=== PATIENT | female | born 1935 | race Caucasian/White ===

== ENCOUNTER 2021-08-25 21:52 | Emergency (ER) | payer MEDICARE, BC ==
[~2021-08-25] VITALS: Ht 149.9 cm; Wt 39.3 kg
[2021-08-26] MEDS ORDERED: CEPH-585 PO (00:43)
[2021-08-26] MEDS ORDERED: bacitracin 15gm ointment TP ONE (00:45)
[2021-08-26 01:14] VITALS: BP 112/97
== END 2021-08-26 01:17 | disposition home or self-care (01) ==
LOC: ER 21:53
DX: S41.112A Laceration without foreign body of left upper arm, initial encounter (principal); Z79.2 Long term (current) use of antibiotics; W18.40XA Slipping, tripping and stumbling without falling, unspecified, initial encounter; Y93.89 Activity, other specified; Y92.89 Other specified places as the place of occurrence of the external cause; Y99.8 Other external cause status
CPT/HCPCS: 12002; 99284

== ENCOUNTER 2021-09-03 16:34 | Emergency (ER) | payer MEDICARE, BC ==
[~2021-09-03] VITALS: Ht 147.3 cm; Wt 39.3 kg
[~2021-09-03 16:34] MED LIST: CEPH-585 PO
[2021-09-03 16:43] VITALS: BP 159/61
[2021-09-03] MEDS ORDERED: acetaminophen 325mg tablet PO ONE (18:05)
[2021-09-03] MEDS ORDERED: LIDOcaine 1% W/epiNEPHrine 1:200,000 10ml vial IJ ONE (18:05)
[2021-09-03] MEDS ORDERED: LIDOcaine 1% W/epiNEPHrine 1:100,000 20ml vial IJ ONE (18:45)
[2021-09-03] MEDS ORDERED: CLIN-97 PO (19:44)
[2021-09-03] MEDS ORDERED: bacitracin 15gm ointment TP ONE (19:45)
== END 2021-09-03 20:22 | disposition home or self-care (01) ==
LOC: ER 16:34
DX: S01.112A Laceration without foreign body of left eyelid and periocular area, initial encounter (principal); S09.90XA Unspecified injury of head, initial encounter; W19.XXXA Unspecified fall, initial encounter; Y93.89 Activity, other specified; Y92.89 Other specified places as the place of occurrence of the external cause; Y99.8 Other external cause status
CPT/HCPCS: 12002; 70450; 72125; 99285

== ENCOUNTER 2021-09-08 11:25 | Emergency (ER) | payer MEDICARE, BC ==
[~2021-09-08] VITALS: Ht 147.3 cm; Wt 43.0 kg
[~2021-09-08 11:25] MED LIST changes: +CLIN-97 PO
[2021-09-08 11:33] VITALS: BP 137/51
== END 2021-09-08 12:01 | disposition home or self-care (01) ==
LOC: ER 11:25
DX: S01.81XD Laceration without foreign body of other part of head, subsequent encounter (principal); Z48.02 Encounter for removal of sutures; Z60.2 Problems related to living alone; Z79.2 Long term (current) use of antibiotics; X58.XXXD Exposure to other specified factors, subsequent encounter
CPT/HCPCS: 99284

== ENCOUNTER 2021-12-19 18:59 | Emergency (ER) | payer MEDICARE, BC ==
[~2021-12-19] VITALS: Ht 147.3 cm; Wt 48.5 kg
[2021-12-19 19:46] LABS: BASOPHILS % (AUTO) 0.7 % (0-1); EOSINOPHILS % (AUTO) 0.1 % (0-6); HEMATOCRIT 31.2 % (35.0-45.0); HEMOGLOBIN 10.3 g/dl (12.0-16.0); LYMPHOCYTES # (AUTO) 1.3 X10'3 (1.1-4.8); LYMPHOCYTES % (AUTO) 22.3 % (21-51); MEAN CORPUSCULAR HEMOGLOBIN 29.8 PG (27.0-31.0); MEAN CORPUSCULAR VOLUME 90.1 FL (78-98); MEAN PLATELET VOLUME 7.4 FL (7.4-10.4); MONOCYTES # (AUTO) 0.5 X10'3 (0-0.9); MONOCYTES % (AUTO) 9.1 % (2-12); NEUTROPHILS % (AUTO) 67.8 % (42-75); PLATELET COUNT 237 X10'3 (140-440); RED BLOOD COUNT 3.47 X10'6 (4.20-5.60); RED CELL DISTRIBUTION WIDTH 14.6 % (11.5-14.5); WHITE BLOOD COUNT 5.9 X10'3 (4.5-11.0)
[2021-12-19 20:08] LABS: ALANINE AMINOTRANSFERASE 18 U/L (12-78); ALBUMIN 3.3 G/DL (3.4-5.0); ALBUMIN/GLOBULIN RATIO 0.8 (1.1-1.5); ALKALINE PHOSPHATASE 82 IU/L (46-116); ANION GAP 11 (8-16); ASPARTATE AMINO TRANSFERASE 30 U/L (10-37); BILIRUBIN,TOTAL 0.7 MG/DL (0.1-1.0); BLOOD UREA NITROGEN 10 MG/DL (7-18); BUN/CREATININE RATIO 13.7 (6.6-38.0); CALCIUM 8.7 MG/DL (8.5-10.1); CHLORIDE 94 MMOL/L (99-107); CREATININE 0.73 MG/DL (0.40-0.90); GLUCOSE 161 MG/DL (70-104); SODIUM 135 MMOL/L (135-145); TOTAL CARBON DIOXIDE 29.7 MMOL/L (24-32); TOTAL PROTEIN 7.2 G/DL (6.4-8.2); eGFR 76 ML/MIN
[2021-12-19 20:13] LABS: POTASSIUM 2.1 MMOL/L (3.5-5.1)
[2021-12-19] MEDS ORDERED: potassium Cl 20 mEq SR tablet PO ONE (20:20)
[2021-12-19] MEDS: potassium CL 10mEq/100ml bag 100 ML IV SCH ×2 (20:36→21:55)
[2021-12-19 23:21] VITALS: BP 167/67
== END 2021-12-19 23:24 | disposition home or self-care (01) ==
LOC: ER 19:00
DX: E87.6 Hypokalemia (principal); I50.9 Heart failure, unspecified; M81.0 Age-related osteoporosis without current pathological fracture; Z88.8 Allergy status to other drugs, medicaments and biological substances; Z79.2 Long term (current) use of antibiotics; Z79.899 Other long term (current) drug therapy; Z88.5 Allergy status to narcotic agent; Z88.6 Allergy status to analgesic agent
CPT/HCPCS: 36415; 71045; 80053; 83880; 84484; 85025; 93005; 96365; 96366; 99285; J3480

== ENCOUNTER 2022-02-10 13:43 | Emergency (ER) | payer MEDICARE, BC ==
[~2022-02-10] VITALS: Ht 147.3 cm; Wt 39.0 kg
[2022-02-10 15:29] LABS: BASOPHILS % (AUTO) 0.3 % (0-1); EOSINOPHILS % (AUTO) 0 % (0-6); HEMOGLOBIN 9.5 g/dl (12.0-16.0); LYMPHOCYTES % (AUTO) 14.8 % (21-51); MEAN CORPUSCULAR HEMOGLOBIN 31.6 PG (27.0-31.0); MEAN CORPUSCULAR VOLUME 92.9 FL (78-98); MEAN PLATELET VOLUME 6.7 FL (7.4-10.4); MONOCYTES # (AUTO) 0.5 X10'3 (0-0.9); NEUTROPHILS % (AUTO) 76.9 % (42-75); PLATELET COUNT 397 X10'3 (140-440); RED BLOOD COUNT 3.02 X10'6 (4.20-5.60); RED CELL DISTRIBUTION WIDTH 14.3 % (11.5-14.5); WHITE BLOOD COUNT 6.5 X10'3 (4.5-11.0)
[2022-02-10 15:50] LABS: ALANINE AMINOTRANSFERASE 13 U/L (12-78); ALBUMIN 2.8 G/DL (3.4-5.0); ALBUMIN/GLOBULIN RATIO 0.7 (1.1-1.5); ALKALINE PHOSPHATASE 133 IU/L (46-116); ANION GAP 8 (8-16); ASPARTATE AMINO TRANSFERASE 24 U/L (10-37); BLOOD UREA NITROGEN 13 MG/DL (7-18); BUN/CREATININE RATIO 16.7 (6.6-38.0); CALCIUM 9.5 MG/DL (8.5-10.1); CHLORIDE 95 MMOL/L (99-107); CREATININE 0.78 MG/DL (0.40-0.90); GLUCOSE 110 MG/DL (70-104); POTASSIUM 4.6 MMOL/L (3.5-5.1); SODIUM 128 MMOL/L (135-145); TOTAL CARBON DIOXIDE 24.8 MMOL/L (24-32); TOTAL PROTEIN 6.8 G/DL (6.4-8.2); eGFR 70 ML/MIN
--- NOTE | 2022-02-10 19:13 | NUR ---
REPOSITIONED PT IN BED. STATES HER TAILBONE IS "BUGGING HER" OFFERED BLANKETS TO RELIEVE PRESSURE, PT DECLINED.
[2022-02-10] MEDS ORDERED: normal saline 1000ML IV soln IVB ONE (19:20)
[2022-02-10] MEDS ORDERED: metroNIDAZOLE 500mg tablet PO ONE (19:20)
[2022-02-10] MEDS ORDERED: ondansetron/PF 4mg/2ml inj IV ONE (19:20)
[2022-02-10] MEDS ORDERED: loperamide 2mg capsule PO ONE (19:20)
[2022-02-10] MEDS ORDERED: METR-159 PO (19:33)
[2022-02-10 23:01] VITALS: BP 146/55
== END 2022-02-10 23:04 | disposition home or self-care (01) ==
LOC: ER 13:45
DX: E88.09 Other disorders of plasma-protein metabolism, not elsewhere classified (principal); E46 Unspecified protein-calorie malnutrition; R19.7 Diarrhea, unspecified; R53.1 Weakness; E87.1 Hypo-osmolality and hyponatremia; R63.4 Abnormal weight loss; R10.84 Generalized abdominal pain; I50.9 Heart failure, unspecified; Z60.2 Problems related to living alone; Z88.8 Allergy status to other drugs, medicaments and biological substances; Z88.6 Allergy status to analgesic agent; Z79.2 Long term (current) use of antibiotics; Z68.1 Body mass index [BMI] 19.9 or less, adult
CPT/HCPCS: 36415; 71045; 80053; 85025; 93005; 96374; 99285; J2405; J7030

== ENCOUNTER 2022-03-02 09:50 | Emergency (ER) | payer MEDICARE, BC ==
[~2022-03-02] VITALS: Ht 149.9 cm; Wt 40.0 kg
[2022-03-02 12:32] LABS: BASOPHILS % (AUTO) 0.4 % (0-1); EOSINOPHILS % (AUTO) 0 % (0-6); HEMOGLOBIN 10.4 g/dl (12.0-16.0); LYMPHOCYTES # (AUTO) 0.8 X10'3 (1.1-4.8); LYMPHOCYTES % (AUTO) 14.7 % (21-51); MEAN CORPUSCULAR HEMOGLOBIN 32.2 PG (27.0-31.0); MEAN CORPUSCULAR HGB CONC 33.5 g/dL (33.0-36.5); MEAN PLATELET VOLUME 6.7 FL (7.4-10.4); MONOCYTES # (AUTO) 0.4 X10'3 (0-0.9); MONOCYTES % (AUTO) 7.2 % (2-12); NEUTROPHILS # (AUTO) 4.2 X10'3 (1.8-7.7); NEUTROPHILS % (AUTO) 77.7 % (42-75); PLATELET COUNT 239 X10'3 (140-440); RED BLOOD COUNT 3.24 X10'6 (4.20-5.60); RED CELL DISTRIBUTION WIDTH 18.5 % (11.5-14.5); WHITE BLOOD COUNT 5.4 X10'3 (4.5-11.0)
[2022-03-02 12:37] LABS: CLARITY,URINE CLEAR (Clear); COLOR,URINE YELLOW (Yellow); GLUCOSE, URINE NEGATIVE (Neg); KETONES,URINE NEGATIVE (Neg); LEUKOCYTE ESTERASE ,URINE NEGATIVE (Neg); NITRITES, URINE NEGATIVE (Neg); OCCULT BLOOD,URINE NEGATIVE (Neg); PH,URINE 5.5 (4.8-8.0); PROTEIN,URINE TRACE mg/dl (Neg); UROBILINOGEN,URINE 0.2 E.U/dL (0.2-1.0)
[2022-03-02 12:39] LABS: UA COLLECTION TYPE STRAIGHT CATH
[2022-03-02 12:44] LABS: ALANINE AMINOTRANSFERASE 13 U/L (12-78); ALBUMIN 2.8 G/DL (3.4-5.0); ALBUMIN/GLOBULIN RATIO 0.8 (1.1-1.5); ALKALINE PHOSPHATASE 103 IU/L (46-116); ANION GAP 9 (8-16); ASPARTATE AMINO TRANSFERASE 29 U/L (10-37); BILIRUBIN,TOTAL 0.8 MG/DL (0.1-1.0); BLOOD UREA NITROGEN 21 MG/DL (7-18); BUN/CREATININE RATIO 25.6 (6.6-38.0); CALCIUM 9.6 MG/DL (8.5-10.1); CHLORIDE 94 MMOL/L (99-107); CREATININE 0.82 MG/DL (0.40-0.90); GLUCOSE 113 MG/DL (70-104); SODIUM 129 MMOL/L (135-145); TOTAL CARBON DIOXIDE 25.6 MMOL/L (24-32); TOTAL PROTEIN 6.5 G/DL (6.4-8.2); eGFR 66 ML/MIN
[2022-03-02 12:49] LABS: BACTERIA,URINE FEW /HPF (Neg); MUCUS STRANDS FEW /LPF (Neg); SQUAMOUS EPITHELIAL CELL,UR FEW /LPF (FEW); WBC,URINE NONE SEEN /HPF (0-4)
[2022-03-02 12:51] LABS: CAL OXALATE CRYSTALS 1+ /HPF (NEGATIVE); RBC,URINE NONE SEEN /HPF (0-2)
[2022-03-02 12:57] LABS: POTASSIUM 2.9 MMOL/L (3.5-5.1)
[2022-03-02] MEDS ORDERED: potassium Cl 20 mEq SR tablet PO ONE (13:20)
--- NOTE | 2022-03-02 13:43 | NUR ---
[facility] ([facility] [employer]) WILL PICKUP PATIENT. DC INSTRUCTIONS REVIEWED.
[2022-03-02 13:44] VITALS: BP 110/51
== END 2022-03-02 14:06 | disposition home or self-care (01) ==
LOC: ER 09:50
DX: S00.83XA Contusion of other part of head, initial encounter (principal); M25.561 Pain in right knee; M25.551 Pain in right hip; F03.90 Unspecified dementia, unspecified severity, without behavioral disturbance, psychotic disturbance, mood disturbance, and anxiety; I50.9 Heart failure, unspecified; M81.0 Age-related osteoporosis without current pathological fracture; Z79.2 Long term (current) use of antibiotics; Z79.899 Other long term (current) drug therapy; Z88.8 Allergy status to other drugs, medicaments and biological substances; W19.XXXA Unspecified fall, initial encounter; Y93.89 Activity, other specified; Y92.89 Other specified places as the place of occurrence of the external cause; Y99.8 Other external cause status
CPT/HCPCS: 36415; 70450; 73560; 80053; 81001; 85025; 93005; 99285

== ENCOUNTER 2022-03-08 09:07 | Emergency (ER) | payer MEDICARE, BC ==
[~2022-03-08] VITALS: Ht 142.2 cm; Wt 40.5 kg
[2022-03-08 10:38] LABS: BASOPHILS % (AUTO) 0.5 % (0-1); EOSINOPHILS % (AUTO) 0 % (0-6); HEMATOCRIT 28.7 % (35.0-45.0); HEMOGLOBIN 9.8 g/dl (12.0-16.0); LYMPHOCYTES # (AUTO) 0.8 X10'3 (1.1-4.8); LYMPHOCYTES % (AUTO) 16.6 % (21-51); MEAN CORPUSCULAR HEMOGLOBIN 32.5 PG (27.0-31.0); MEAN CORPUSCULAR HGB CONC 34.1 g/dL (33.0-36.5); MEAN CORPUSCULAR VOLUME 95.5 FL (78-98); MEAN PLATELET VOLUME 6.3 FL (7.4-10.4); MONOCYTES # (AUTO) 0.3 X10'3 (0-0.9); MONOCYTES % (AUTO) 6.8 % (2-12); NEUTROPHILS # (AUTO) 3.6 X10'3 (1.8-7.7); NEUTROPHILS % (AUTO) 76.1 % (42-75); PLATELET COUNT 207 X10'3 (140-440); RED BLOOD COUNT 3.01 X10'6 (4.20-5.60); RED CELL DISTRIBUTION WIDTH 17.3 % (11.5-14.5); WHITE BLOOD COUNT 4.7 X10'3 (4.5-11.0)
[2022-03-08 10:52] LABS: ALANINE AMINOTRANSFERASE 14 U/L (12-78); ALBUMIN 2.6 G/DL (3.4-5.0); ALBUMIN/GLOBULIN RATIO 0.7 (1.1-1.5); ALKALINE PHOSPHATASE 92 IU/L (46-116); ANION GAP 14 (8-16); ASPARTATE AMINO TRANSFERASE 31 U/L (10-37); BILIRUBIN,TOTAL 0.8 MG/DL (0.1-1.0); BLOOD UREA NITROGEN 21 MG/DL (7-18); BUN/CREATININE RATIO 24.4 (6.6-38.0); CALCIUM 10.1 MG/DL (8.5-10.1); CHLORIDE 102 MMOL/L (99-107); CREATININE 0.86 MG/DL (0.40-0.90); GLUCOSE 109 MG/DL (70-104); SODIUM 143 MMOL/L (135-145); TOTAL CARBON DIOXIDE 27.1 MMOL/L (24-32); TOTAL PROTEIN 6.3 G/DL (6.4-8.2); eGFR 63 ML/MIN
[2022-03-08 10:58] LABS: POTASSIUM 2.8 MMOL/L (3.5-5.1)
[2022-03-08] MEDS ORDERED: potassium Cl 20 mEq SR tablet PO STA (11:07)
[2022-03-08] MEDS ORDERED: magnesium 2GM in 50ml NS 50 ML IV ONE (11:10)
[2022-03-08 12:46] VITALS: BP 150/49
[2022-03-12] MEDS ORDERED: LEVO25TA7 PO (19:00)
[2022-03-12] MEDS ORDERED: MESA1.2T PO (19:02)
[2022-03-12] MEDS ORDERED: AMLO5TAB16 PO (19:02)
[2022-03-12] MEDS ORDERED: POTA-208 PO (19:02)
[2022-03-12] MEDS ORDERED: CARV3.122 PO (19:02)
[2022-03-12] MEDS ORDERED: DIPH-522 PO (19:02)
== END 2022-03-08 13:07 ==
LOC: ER 09:07
DX: E87.6 Hypokalemia (principal); I50.9 Heart failure, unspecified; Z88.8 Allergy status to other drugs, medicaments and biological substances; Z88.6 Allergy status to analgesic agent; Z79.899 Other long term (current) drug therapy
CPT/HCPCS: 36415; 80053; 85025; 96365; 99284; J3475